=== PATIENT | male | born 1950 | race Caucasian/White ===

== ENCOUNTER 2019-04-09 13:12 | Inpatient (IN) | payer MEDICARE, OTHER ==
[~2019-04-09] VITALS: Ht 172.7 cm; Wt 108.0 kg
[~2019-04-09 13:12] MED LIST: IBUP400 PO; METO25ER PO
[2019-04-09] MEDS ORDERED: LISI20 PO (13:30)
[2019-04-09] MEDS ORDERED: Carvedilol12.5 MG PO (13:30)
[2019-04-09] MEDS ORDERED: Lasix40 MG PO (13:30)
[2019-04-09] MEDS ORDERED: Simvastatin20 MG PO (13:30)
[2019-04-09] MEDS ORDERED: ASPI325 PO (14:37)
[2019-04-09] MEDS ORDERED: POTA10T PO (14:38)
[2019-04-09 14:44] LABS: BASOPHILS ABSOLUTE AUTO 0.04 K/mm3 (0.00-0.23); BASOPHILS PERCENT AUTO 1 % (0-2); EOSINOPHILS ABSOLUTE AUTO 0.17 K/mm3 (0.00-0.68); EOSINOPHILS PERCENT AUTO 2 % (0-6); Hematocrit 41.3 % (37.0-53.0); Hemoglobin 13.4 g/dL (13.5-17.5); IMMATURE GRAN ABSOLUTE AUTO 0.03 K/mm3 (0.00-0.10); IMMATURE GRAN PERCENT AUTO 0 % (0-1); LYMPHOCYTES ABSOLUTE AUTO 1.04 K/mm3 (0.84-5.20); LYMPHOCYTES PERCENT AUTO 14 % (21-46); MONOCYTES ABSOLUTE AUTO 0.88 K/mm3 (0.16-1.47); MONOCYTES PERCENT AUTO 12 % (4-13); Mean Corpuscular HGB 32.1 pg (26.0-34.0); Mean Corpuscular HGB Conc 32.4 g/dL (31.5-36.5); Mean Corpuscular Volume 99 fL (80-100); Mean Platelet Volume 11.4 fL (9.1-12.4); NEUTROPHILS ABSOLUTE AUTO 5.48 K/mm3 (1.96-9.15); NEUTROPHILS PERCENT AUTO 72 % (41-73); Platelet Count 102 K/mm3 (150-400); RDW Coefficient Variation 13.6 % (11.7-14.2); RDW Standard Deviation 49.1 fL (35.1-46.3); Red Blood Cell Count 4.18 M/mm3 (4.30-5.90); White Blood Cell Count 7.64 K/mm3 (4.00-11.30)
[2019-04-09 14:58] LABS: International Normalized Ratio 1.08; Prothrombin Time Results 11.4 Sec (9.7-11.5)
[2019-04-09 15:09] LABS: Alanine Aminotransfer (ALT/SGP 27 U/L (12-78); Albumin, Blood 3.7 g/dL (3.4-5.0); Albumin/Globulin Ratio 1.1 (0.8-1.8); Alk Phos 53 U/L (50-136); Anion Gap 6 mmol/L (6-16); Aspartate Aminotrans (AST/SGOT 40 U/L (12-37); Bilirubin, Total 1.7 mg/dL (0.1-1.0); Blood Urea Nitrogen 20 mg/dL (8-24); Bun/Creatinine Ratio 18.3 (12.0-20.0); CO2, Blood 26 mmol/L (21-32); Calcium, Blood 8.6 mg/dL (8.5-10.1); Chloride, Blood 109 mmol/L (98-108); Creatinine, Blood 1.09 mg/dL (0.60-1.20); Globulin, Blood 3.3 g/dL (2.2-4.0); Glomerular Filtration Rate >60 (60-); Glucose, Blood 99 mg/dL (70-99); Potassium, Blood 4.1 mmol/L (3.5-5.5); Sodium, Blood 141 mmol/L (136-145)
--- NOTE | 2019-04-09 19:44 | NUR ---
SHIFT SUMMARY ED ADMIT THIS EVENING. PATIENT SETTLED INTO ROOM. DENIES NAUSEA AND SHORTNESS OF BREATH. MEDICATED X 1 FOR PAIN. UP SBA TO BR. NPO AT MIDNIGHT FOR PROCEDURE IN THE AM. HEPARIN DRIP RUNNING. REPORT GIVEN TO ORION FUNEZ.
--- NOTE | 2019-04-10 04:35 | NUR ---
SHIFT SUMMARY A/O, ABLE TO MAKE NEEDS KNOWN. COOPERATIVE WITH CARE. ANSWERS QUESTIONS APPROPRIATELY. C/O PAIN/DISCOMFORT TO R GROIN/L SHOULDER; MEDICATED PER EMAR. STATES HE IS TO HAVE SX AT SOME POINT ON HIS SHOULDER. HEPARIN INFUSING W/O COMPLICATION. APPEARED TO REST MUCH OF NIGHT. VSS/AFEBRILE. HAS BEEN NPO SINCE MIDNIGHT. PROCEDURE THIS DAY WITH DR. RENTERIA. 1P ASSIST TO BATHROOM WHEN OOB. NO ACTUE CHANGES OVERNIGHT. BED IN LOWEST POSITION. CALL LIGHT AND BELONGINGS WITHIN REACH. WCTM. REPORT TO ONCOMING RN.
[2019-04-10 08:43] LABS: BASOPHILS ABSOLUTE AUTO 0.04 K/mm3 (0.00-0.23); BASOPHILS PERCENT AUTO 1 % (0-2); EOSINOPHILS ABSOLUTE AUTO 0.26 K/mm3 (0.00-0.68); EOSINOPHILS PERCENT AUTO 4 % (0-6); Hematocrit 40.1 % (37.0-53.0); IMMATURE GRAN ABSOLUTE AUTO 0.03 K/mm3 (0.00-0.10); IMMATURE GRAN PERCENT AUTO 0 % (0-1); LYMPHOCYTES ABSOLUTE AUTO 1.18 K/mm3 (0.84-5.20); LYMPHOCYTES PERCENT AUTO 17 % (21-46); MONOCYTES ABSOLUTE AUTO 0.79 K/mm3 (0.16-1.47); MONOCYTES PERCENT AUTO 11 % (4-13); Mean Corpuscular HGB 31.6 pg (26.0-34.0); Mean Corpuscular HGB Conc 32.4 g/dL (31.5-36.5); Mean Corpuscular Volume 97 fL (80-100); Mean Platelet Volume 11.3 fL (9.1-12.4); NEUTROPHILS ABSOLUTE AUTO 4.76 K/mm3 (1.96-9.15); NEUTROPHILS PERCENT AUTO 67 % (41-73); RDW Coefficient Variation 13.6 % (11.7-14.2); RDW Standard Deviation 49.1 fL (35.1-46.3); Red Blood Cell Count 4.12 M/mm3 (4.30-5.90); White Blood Cell Count 7.06 K/mm3 (4.00-11.30)
--- NOTE | 2019-04-10 08:45 | NUR ---
PT TRANSPORTED VIA W/C TO SURGICAL DEPARTMENT FOR PROCEDURE.
[2019-04-10 08:47] LABS: Platelet Count 96 K/mm3 (150-400)
[2019-04-10 08:59] LABS: Alanine Aminotransfer (ALT/SGP 22 U/L (12-78); Albumin, Blood 3.3 g/dL (3.4-5.0); Alk Phos 49 U/L (50-136); Anion Gap 6 mmol/L (6-16); Aspartate Aminotrans (AST/SGOT 29 U/L (12-37); Bilirubin, Total 1.2 mg/dL (0.1-1.0); Blood Urea Nitrogen 22 mg/dL (8-24); Bun/Creatinine Ratio 25.2 (12.0-20.0); CO2, Blood 26 mmol/L (21-32); Calcium, Blood 8.5 mg/dL (8.5-10.1); Chloride, Blood 110 mmol/L (98-108); Creatinine, Blood 0.87 mg/dL (0.60-1.20); Globulin, Blood 3.2 g/dL (2.2-4.0); Glomerular Filtration Rate >60 (60-); Glucose, Blood 102 mg/dL (70-99); Potassium, Blood 3.6 mmol/L (3.5-5.5); Sodium, Blood 142 mmol/L (136-145); Total Protein, Blood 6.5 g/dL (6.4-8.2)
--- NOTE | 2019-04-10 12:37 | NUR ---
1050: PT TO ICU 15 FROM PERSONNEL AND PAYROLL TECHNICIAN, A&OX4, CALM AND COOPERATIVE. VSS, LEFT GROIN ACCESS SITE WNL, BEKA DRESSING CDI, NO OOZING OR HEMATOMA NOTED. RIGHT POPLITEAL SHEATH IN PLACE, NO BLEEDING OR OOZING FROM SITE, TPA INFUSING AT 1MG/HR AND HEPARIN AT 300U/HR BOTH VIA POPLITEAL SHEATH. PT LYING FLAT, UNDERSTANDS SHEATH AND GROIN ACCESS PREACAUTIONS, MAINTAINING POSITION. HRR, LS CTA, PT DENIES C/O AT THIS TIME. REPORT FROM PERSONNEL AND PAYROLL TECHNICIAN STAFF. 1130: REPORT FROM MEDICAL FLOOR RN. PT SLEEPING AT THIS TIME, VSS. 1240: SHEATH AND LEFT GROIN ACCESS SITES REASSESSED, NO CHANGES NOTED. PT GIVEN NORCO FOR LEFT SHOULDER ARTHRITIC PAIN, DENIES OTHER NEEDS. MAINTAINING PRECAUTION POSITION. PLAN OF CARE DISCUSSED WITH PT. TPA AND HEPARIN CONTINUE TO INFUSE. FIBRINOGEN LEVEL NOTED.
--- NOTE | 2019-04-10 13:33 | NUR ---
DR. AGARWAL NOTIFIED OF HYPERTENSION, NEW ORDER RECEIVED. PT STATES SHOULDER PAIN HAS NOT IMPROVED MUCH SINCE NORCO, WILL GIVE SECOND TAB PER ORDERS AND HYDRALAZINE FOR HTN. PT REMAINS IN PRONE POSITION, COOPERATIVE WITH PRECAUTIONS.
--- NOTE | 2019-04-10 14:20 | NUR ---
TPA INFUSION COMPLETE, HEPARIN CONTINUED PER ORDERS.
--- NOTE | 2019-04-10 16:38 | NUR ---
1610: PT BACK FROM RAILROAD CONSTRUCTION DIRECTOR, SHEATH PULLED IN LAB, DRESSING TO RIGHT POPLITEAL VEIN ACCESS SITE CDI, SITE WNL WITH NO BLEEDING/HEMATOMA NOTED. LEFT GROIN ACCESS SITE WNL, UNCHANGED. VSS, PT DENIES CP/SOB, ECTOPY PRESENT BUT UNCHANGED FROM FIRST TIME IN RAILROAD CONSTRUCTION DIRECTOR PER RAILROAD CONSTRUCTION DIRECTOR NURSE REPORT, R ON T WAVES AND FREQUENT PVC'S. PT IS ANXIOUS TO GET HOME BUT COOPERATIVE WITH CARE, REMAINS IN SUPINE POSITION PER ACCESS PRECAUTIONS. PEDAL PULSES PALPABLE BILAT.
[2019-04-10] MEDS ORDERED: ELIQUIS5 MG PO (17:18)
--- NOTE | 2019-04-10 17:34 | NUR ---
PT SITTING UP IN BED EATING DINNER, VSS AT THIS TIME. NORCO ADMINISTERED FOR CHRONIC LEFT SHOULDER AND LOW BACK PAIN. PT DENIES OTHER NEEDS. FRIEND CALLED FOR RIDE, IS TO ARRIVE AT 1830.
--- NOTE | 2019-04-10 18:46 | NUR ---
1819: DR. RENTERIA AT BEDSIDE SPEAKING WITH PT. 1844: RIGHT POPLITEAL ACCESS SITE AND LEFT GROIN ACCESS SITE REMAIN WNL, NO HEMAOTMOA OR BLEEDING NOTED TO EITHER SITE, DRESSINGS CDI. PT TOELRATED DINNER WELL WITH NO C/O, VSS AT THIS TIME. IV'S DC'D WITH TIPS INTACT, PRESSURE DRESSINGS APPLIED. PT DC TO HOME AT THIS TIME WITH DC INSTRUCTIONS AND BELONGINGS, VERBALIZES UNDERSTANDING. FRIEND AT BEDSIDE TO DRIVE PT HOME, FRIEND ALSO VERBALIZES UNDERSTANDING. PT UP TO VOID WITHOUT DIFFICULTY, ASSISTED TO DRESS, GAIT STEADY. PT TO CAR VIA WITH STAFF ASSISTANCE.
[2019-04-12 11:07] LABS: THROMBIN TIME 17.2 sec (0.0-23.0)
== END 2019-04-10 18:54 | disposition home or self-care (01) | DRG 272 ==
LOC: ER 13:12 → MEDS 13:13 → VAS 15:30 → MEDS 17:13 → ICUW 04-10 10:53
PROVIDERS: Physician Assistant; ADMIT Student in an Organized Health Care Education/Training Program
PROC: 06H03DZ Insertion of Intraluminal Device into Inferior Vena Cava, Percutaneous Approach (ICD-10-PCS; principal; 2019-04-10)
PROC: 04CK3ZZ Extirpation of Matter from Right Femoral Artery, Percutaneous Approach (ICD-10-PCS; 2019-04-10)
PROC: 04CH3ZZ Extirpation of Matter from Right External Iliac Artery, Percutaneous Approach (ICD-10-PCS; 2019-04-10)
PROC: 067C3DZ Dilation of Right Common Iliac Vein with Intraluminal Device, Percutaneous Approach (ICD-10-PCS; 2019-04-10)
DX: I82.421 Acute embolism and thrombosis of right iliac vein (principal); I82.411 Acute embolism and thrombosis of right femoral vein; I82.890 Acute embolism and thrombosis of other specified veins; I10 Essential (primary) hypertension; D69.6 Thrombocytopenia, unspecified; I25.10 Atherosclerotic heart disease of native coronary artery without angina pectoris; E78.5 Hyperlipidemia, unspecified; G47.33 Obstructive sleep apnea (adult) (pediatric); I70.201 Unspecified atherosclerosis of native arteries of extremities, right leg
CPT/HCPCS: 36415; 37184; 37191; 37212; 37238; 75820; 76937; 80053; 81241; 85025; 85240; 85300; 85303; 85306; 85384; 85610; 85651; 85670; 85730; 93971; 96365; 99152; 99153; 99285-25; A9270-GY; C1724; C1725; C1751; C1757; C1769; C1876; C1880; C1887; C1894; J0360; J1644; J2250; J2997; J3010; J7030; J7040; Q9967

== ENCOUNTER 2021-05-12 12:36 | Emergency (ER) | payer MEDICARE, OTHER ==
[~2021-05-12] VITALS: Ht 172.7 cm; Wt 104.3 kg
[~2021-05-12 12:36] MED LIST changes: +AMOCLA875 PO; +ASPI325 PO; +Carvedilol12.5 MG PO; +ELIQUIS5 MG PO; +LISI20 PO; +Lasix40 MG PO; +OXYC5 PO; +POTA10T PO; +PROM25 PO; +Simvastatin20 MG PO
[2021-05-12] MEDS ORDERED: Percocet 5-3251 EACH PO (14:00)
== END 2021-05-12 14:25 | disposition home or self-care (01) ==
LOC: ER 12:36
DX: S43.102A Unspecified dislocation of left acromioclavicular joint, initial encounter (principal); M19.012 Primary osteoarthritis, left shoulder; I10 Essential (primary) hypertension; I25.10 Atherosclerotic heart disease of native coronary artery without angina pectoris; Z96.612 Presence of left artificial shoulder joint; Z79.899 Other long term (current) drug therapy; Z79.82 Long term (current) use of aspirin; Z95.1 Presence of aortocoronary bypass graft; W22.8XXA Striking against or struck by other objects, initial encounter; Y92.481 Parking lot as the place of occurrence of the external cause
CPT/HCPCS: 73030; 73050; 99283-25; A9270